=== PATIENT | female | born 1935 | race Caucasian/White ===

== ENCOUNTER 2022-04-27 09:20 | Observation (INO) | payer MEDICARE, BC, SELFPAY ==
[2022-04-27] VITALS (107 sets, daily range): BP systolic 99–148; BP diastolic 65–113; PULSE 69–98; RESP 16–20; TEMP 36.4–36.9; O2SAT 67–100; BMI 29.0; BMI 25.9
--- NOTE | 2022-04-27 09:21 | CRLHL7_ITS ---
For Patients: As a result of the Century Cures Act, medical imaging exams and procedure reports are released immediately into your electronic medical record. You may view this report before your referring provider. If you have questions, please contact your health care provider. INDICATION: Clinical signs and symptoms of an acute stroke. COMPARISON: A prior examination dated April 02, 2022 TECHNIQUE: CT examination of the head was performed as axial sections without intravenous contrast. Images were obtained from the vertex of the skull through the skull base. Please note that all CT scans at this facility use dose modulation, iterative reconstruction, and/or weight-based dosing when appropriate to reduce radiation dose to as low as reasonably achievable. FINDINGS: The brain shows no sign of mass lesion, mass effect, hemorrhage, or edema. There are involutional changes. There is moderate cortical atrophy and there is moderate to severe white matter disease. 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 There is subcortical infarct in the anterior aspect of the left centrum semiovale. This nonacute There is no hydrocephalus. The visualized portions of the orbits are normal in appearance. The osseous structures are normal in appearance with no sign of abnormality in the skull base or calvarium. There is a hyperdense focus identified on the left. It is probably vascular and probably within branches M2 her and 3 on the left in the region of the insula. This was not present on April 02, 2022 and could represent thrombus within this vessel. A CT is advised. I discussed this case with Dr. Jenni Garcia at 9:55 a.m. on April 27, 2022 IMPRESSION: 1. Hyperdense focus identified in the left MCA distribution in the region of the anterior left insula. This was not present on the prior study and probably represents thrombus within peripheral branches of the MCA in this area. 2. No hemorrhage, mass or definite edema on the current study. 3. Atrophy and white matter disease. 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 Please note that all CT scans at this facility use dose modulation, iterative reconstruction, and/or weight-based dosing when appropriate to reduce radiation dose to as low as reasonably achievable. Dictated by Otoniel Shafer MD @ 04/27/2022 9:57:59 AM (Electronically Signed)
--- NOTE | 2022-04-27 10:05 | CRLHL7_ITS ---
For Patients: As a result of the Century Cures Act, medical imaging exams and procedure reports are released immediately into your electronic medical record. You may view this report before your referring provider. If you have questions, please contact your health care provider. CT ANGIOGRAM NECK DATE: 04/27/2022 CLINICAL HISTORY: Patient with focal neurological deficits. TECHNIQUE: Standard helical CT image acquisition of the neck up to the skull base after bolus intravenous contrast enhancement. Multiplanar reconstructed images performed on a separate workstation. COMPARISON: CT same day. FINDINGS: The origins of the great vessels from the aortic arch are patent. The origin of the right vertebral artery is patent. The origin of the left vertebral artery is patent. The common carotid arteries are patent. There is no stenosis at the origin of the right internal carotid artery. There is no stenosis at the origin of the left internal carotid artery. The rest of the cervical segments of the internal carotid arteries are patent up to the skull base. The left vertebral artery is dominant. The cervical segments of the vertebral arteries are patent up to the skull base. The visualized lung apices are unremarkable. The thyroid gland demonstrates a 1.8cm hypodense lesion in its left lobe. The soft tissues of the neck are unremarkable. There are degenerative changes in the cervical spine. IMPRESSION: 1. Patent cervical vasculature. 2. 1.8cm left thyroid nodule. This could be better assessed with ultrasound. Please note that all CT scans at this facility use dose modulation, iterative reconstruction, and/or weight-based dosing when appropriate to reduce radiation dose to as low as reasonably achievable. Dictated by: Pedro Luis Jara MD @ 04/27/2022 10:57:45 (Electronically Signed)
--- NOTE | 2022-04-27 10:05 | CRLHL7_ITS ---
For Patients: As a result of the Cures Act, medical imaging exams and procedure reports are released immediately into your electronic medical record. You may view this report before your referring provider. If you have questions, please contact your health care provider. CT ANGIOGRAM HEAD DATE: 04/27/2022 CLINICAL HISTORY: Patient with focal neurological deficits. TECHNIQUE: Standard helical CT image acquisition through the intracranial circulation following intravenous administration of contrast material with bolus tracking. Multiplanar reconstructed images were performed and interpreted. COMPARISON: CT same day. FINDINGS: There is no cerebral aneurysm or large vessel occlusion. The right internal carotid artery is normal. The right middle cerebral artery and its branches are normal. The right anterior cerebral artery and its branches are normal. The left internal carotid artery is normal. The left middle cerebral artery and its branches are normal. The left anterior cerebral artery and its branches are normal. The anterior communicating artery is well visualized and appears normal. The right vertebral artery and PICA are normal. The left vertebral artery and PICA are normal. The left vertebral artery is dominant. The basilar artery is patent and appears normal. The right posterior cerebral artery is normal. The left posterior cerebral artery is normal. The visualized venous structures are patent. IMPRESSION: Normal CT angiogram of the head without intracranial aneurysm or other neurovascular abnormality. Please note that all CT scans at this facility use dose modulation, iterative reconstruction, and/or weight-based dosing when appropriate to reduce radiation dose to as low as reasonably achievable. Dictated by: Pedro Luis Jara MD @ 04/27/2022 10:59:38 (Electronically Signed)
[2022-04-27 10:06] LABS: Creatinine, Point-of-Care* 0.8 mg/dl (0.6-1.3)
[2022-04-27 10:22] LABS: Basophils Percent Auto 0.5 % (0.0-3.0); Hematocrit 38.2 % (33.0-51.0); Hemoglobin* 12.4 gm/dL (12.0-16.0); Immature Granulocytes Pct Auto 0.2 %; Lymphocytes Percent Auto 15.6 % (20-44); Mean Corpuscular HGB Conc 33 gm/dL (32-36); Mean Corpuscular Hemoglobin 34 pg (26-34); Mean Corpuscular Volume 104 fL (80-100); Monocytes Percent Auto 6.5 % (0.0-11.0); Neutrophils Percent Auto 75.2 % (42.0-72.0); Platelet Count* 188 K/uL (140-440); RDW Coefficient of Variation % 13.5 % (11.5-15.5); Red Blood Count 3.67 m/uL (4.00-5.20); White Blood Count* 4.03 K/uL (4.50-11.00)
[2022-04-27] MEDS: 0.9 % SODIUM CHLORIDE 1000 ml 1,000 ML IV ×2 (10:27→15:46)
[2022-04-27] MEDS: ASPIRIN 81 MG TAB.CHEW 162 MG PO (10:27)
[2022-04-27 10:33] LABS: Slide Review Reflex No
[2022-04-27 10:41] LABS: Chloride* 106 mmol/L (96-114); Sodium* 140 mmol/L (135-149)
[2022-04-27 10:42] LABS: Prothrombin Time 15.9 Seconds
[2022-04-27 10:43] LABS: Partial Thromboplastin Time* 34 Seconds (23-33)
[2022-04-27 10:44] LABS: Blood Urea Nitrogen* 20 mg/dL (7-30); Carbon Dioxide* 28 mmol/L (20-32); Creatinine* 0.7 mg/dL (0.5-1.5); Estimated Glomerular Filt Rate 85 ml/min
[2022-04-27 10:45] LABS: D Dimer Quantitative* 0.31 ug/ml (0.00-0.50)
[2022-04-27 10:45] LABS: Calcium* 8.7 mg/dL (8.4-10.6); Glucose* 96 mg/dL (60-115)
[2022-04-27 10:55] LABS: NT Pro B Type NatriureticPept* 1420 pg/mL
[2022-04-27 11:01] LABS: PCR FLU A Negative PCR FLU A (Negative); PCR FLU B Negative PCR FLU B (Negative); PCR RSV Negative PCR RSV (Negative)
[2022-04-27 11:19] LABS: SARS PCR* Negative SARS-CoV-2 (Negative)
[2022-04-27] MEDS: ASPIRIN 81 MG TAB.CHEW PO ×2 (12:33→15:46)
--- NOTE | 2022-04-27 14:30 | ED.NURSE ---
Patient's original symptoms of stroke had resolved. Around 1430, Patient started having a hard time finding words again and was slanted towards the right. was notified. New CT order placed. Hold off on giving PO eliquis and ASA.
--- NOTE | 2022-04-27 14:41 | CRLHL7_ITS ---
For Patients: As a result of the Cures Act, medical imaging exams and procedure reports are released immediately into your electronic medical record. You may view this report before your referring provider. If you have questions, please contact your health care provider. INDICATION: Aphasia, recent TIA. TECHNIQUE: CT head without contrast. COMPARISON: April 27, 2022. FINDINGS: CSF spaces: Mild diffuse atrophy, expected for age. Brain parenchyma and extra-axial spaces: Chronic white matter ischemic disease. Chronic anterior left centrum semiovale infarction. The payne-white differentiation is normal. Similar hyperdense focus adjacent to the left insula. No sign of mass, hemorrhage, or midline shift. No extra-axial fluid collection. Skull base and calvarium: The visualized paranasal sinuses and mastoid air cells demonstrate no acute or significant findings. Bilateral lens replacement. The visualized orbits are grossly unremarkable. No skull fractures. IMPRESSION: No acute intracranial abnormality or significant change when compared to prior study. However, if there is persistent clinical concern for acute infarction, MRI is a more sensitive study. Please note that all CT scans at this facility use dose modulation, iterative reconstruction, and/or weight-based dosing when appropriate to reduce radiation dose to as low as reasonably achievable. Dictated by Santhosh Ordonez MD @ 04/27/2022 4:17:29 PM (Electronically Signed)
--- NOTE | 2022-04-27 15:43 | ED.NEUROSD ---
HPI - Neuro Symptoms/Deficit General Date Seen: 04/27/22 Chief Complaint: Neuro Symptoms/Altered Deficit Stated Complaint: Stroke Time Seen by Provider: 04/27/22 09:21 Source: patient and family Mode of arrival: EMS Limitations: no limitations History of Present Illness HPI Narrative: Patient is a 87-year-old female who presents here for evaluation [facility], with aphasia, and right arm weakness, she was last known well at 8:00 a.m. 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 She is really unable to talk, or get the words out, my initial evaluation in the hallway, before she went to head CT showed that she had a little bit of weakness of her right arm. Her daughter is here with her, she has vehemently DNR DNI. Related Data Home Medications Medication Instructions Recorded Confirmed apixaban 5 mg tablet (Eliquis) 5 mg PO BID 04/27/22 04/27/22 aspirin 81 mg chewable tablet (St 81 mg PO DAILY 04/27/22 04/27/22 Santhosh Aspirin) azathioprine 50 mg tablet 100 mg PO DAILY 04/27/22 04/27/22 cholecalciferol (vitamin D3) 50 50 mcg PO DAILY 04/27/22 04/27/22 mcg (2,000 unit) capsule metoprolol succinate 25 mg 25 mg PO DAILY 04/27/22 04/27/22 tablet,extended release 24 hr omega 2-kgt-bvb-fish oil 1,000 mg 1 cap PO DAILY 04/27/22 04/27/22 (120 mg-180 mg) capsule (Fish Oil) prednisone 1 mg tablet 2 mg PO DAILY 04/27/22 04/27/22 rosuvastatin 20 mg tablet (Crestor) 20 mg PO HS 04/27/22 04/27/22 venlafaxine 37.5 mg tablet 37.5 mg PO DAILY 04/27/22 04/27/22 vitamins A,C,B-dmry-kckvem 14,320 1 cap PO BID 04/27/22 04/27/22 unit-226 mg-200 unit capsule (PreserVision AREDS) Allergies Allergy/AdvReac Type Severity Reaction Status Date / Time amitriptyline [From Elavil] Allergy Unknown Verified 04/27/22 09:47 nitrofurantoin Allergy Unknown Uncoded 04/27/22 09:47 Review of Systems Status of ROS: Reports: 10 or more systems reviewed and unremarkable except as noted in History and below PFSH [facility] Social History Smoking Status: Unknown if ever smoked Do you use any of these nicotine containing products: None Second hand tobacco smoke exposure: No How often do you have a drink containing alcohol: never AUDIT-C Alcohol total score: 0 Non-prescribed substance use: denies use service: No Exam Narrative: Exam Narrative: Patient is now seen and stabilization room 1, she has no talking to me, she has a little bit of trouble getting some of her words out but her daughter tells me that is her baseline after her stroke, no significant weakness of the face, cranial nerves are normal, TMs are normal, 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 Const: Vital Signs, click to edit/add: Vital Signs - 24 hr 04/27/22 09:20 04/27/22 09:30 04/27/22 09:45 Temperature 97.5 F L Pulse Rate Pulse Rate [Pulse Oximeter] 81 81 81 Respiratory Rate 16 16 16 Blood Pressure Blood Pressure [Le ft Upper Arm] 137/97 H 131/96 H 134/93 H Pulse Oximetry 95 98 98 Oxygen Delivery Me thod Room Air Room Air Room Air 04/27/22 10:00 04/27/22 10:15 04/27/22 09:56 Temperature Pulse Rate 73 Pulse Rate [Pulse Oximeter] 80 82 Respiratory Rate 16 16 Blood Pressure Blood Pressure [Le ft Upper Arm] 128/81 136/85 Pulse Oximetry 93 97 95 Oxygen Delivery Me thod Room Air Room Air 04/27/22 09:57 04/27/22 10:00 04/27/22 10:03 Temperature Pulse Rate 87 82 76 Pulse Rate [Pulse Oximeter] Respiratory Rate Blood Pressure 131/96 H 134/93 H Blood Pressure [Le ft Upper Arm] Pulse Oximetry 98 98 97 Oxygen Delivery Me thod 04/27/22 10:05 04/27/22 10:06 04/27/22 10:10 Temperature Pulse Rate 81 79 90 Pulse Rate [Pulse Oximeter] Respiratory Rate Blood Pressure 128/81 Blood Pressure [Le ft Upper Arm] Pulse Oximetry 96 97 94 Oxygen Delivery Me thod 04/27/22 10:12 04/27/22 10:15 04/27/22 10:27 Temperature Pulse Rate 81 77 88 Pulse Rate [Pulse Oximeter] Respiratory Rate Blood Pressure 136/85 Blood Pressure [Le ft Upper Arm] Pulse Oximetry 97 98 88 Oxygen Delivery Me thod 04/27/22 10:28 04/27/22 10:30 04/27/22 10:32 Temperature Pulse Rate 88 89 86 Pulse Rate [Pulse Oximeter] Respiratory Rate Blood Pressure 125/86 136/94 H Blood Pressure [Le ft Upper Arm] Pulse Oximetry 98 93 99 Oxygen Delivery Me thod 04/27/22 10:35 04/27/22 10:40 04/27/22 10:42 Temperature Pulse Rate 98 79 84 Pulse Rate [Pulse Oximeter] Respiratory Rate 16 Blood Pressure 123/91 H Blood Pressure [Le ft Upper Arm] Pulse Oximetry 93 98 85 L Oxygen Delivery Me thod 04/27/22 10:45 04/27/22 10:50 04/27/22 10:52 Temperature Pulse Rate 82 76 80 Pulse Rate [Pulse Oximeter] Respiratory Rate Blood Pressure 133/88 Blood Pressure [Le ft Upper Arm] Pulse Oximetry 98 91 99 Oxygen Delivery Me thod 04/27/22 10:55 04/27/22 11:00 04/27/22 11:02 Temperature Pulse Rate 70 70 78 Pulse Rate [Pulse Oximeter] Respiratory Rate Blood Pressure 135/87 Blood Pressure [Le ft Upper Arm] Pulse Oximetry 97 97 97 Oxygen Delivery Me thod 04/27/22 11:05 04/27/22 11:10 04/27/22 11:12 Temperature Pulse Rate 84 95 90 Pulse Rate [Pulse Oximeter] Respiratory Rate Blood Pressure 135/84 Blood Pressure [Le ft Upper Arm] Pulse Oximetry 98 88 99 Oxygen Delivery Me thod 04/27/22 11:15 04/27/22 11:20 04/27/22 11:22 Temperature Pulse Rate 98 83 79 Pulse Rate [Pulse Oximeter] Respiratory Rate Blood Pressure 143/88 H Blood Pressure [Le ft Upper Arm] Pulse Oximetry 82 L 99 95 Oxygen Delivery Me thod 04/27/22 11:25 04/27/22 11:30 04/27/22 11:31 Temperature Pulse Rate 82 84 80 Pulse Rate [Pulse Oximeter] Respiratory Rate Blood Pressure 142/103 H Blood Pressure [Le ft Upper Arm] Pulse Oximetry 98 99 91 Oxygen Delivery Me thod 04/27/22 11:35 04/27/22 11:40 04/27/22 11:42 Temperature Pulse Rate 83 71 75 Pulse Rate [Pulse Oximeter] Respiratory Rate Blood Pressure 129/86 Blood Pressure [Le ft Upper Arm] Pulse Oximetry 96 100 96 Oxygen Delivery Me thod 04/27/22 11:47 04/27/22 11:50 04/27/22 11:57 Temperature Pulse Rate 85 74 86 Pulse Rate [Pulse Oximeter] Respiratory Rate Blood Pressure Blood Pressure [Le ft Upper Arm] Pulse Oximetry 93 97 100 Oxygen Delivery Me thod 04/27/22 12:00 04/27/22 12:02 04/27/22 12:07 Temperature Pulse Rate 80 70 81 Pulse Rate [Pulse Oximeter] Respiratory Rate Blood Pressure 144/97 H Blood Pressure [Le ft Upper Arm] Pulse Oximetry 88 93 99 Oxygen Delivery Me thod 04/27/22 12:10 04/27/22 12:12 04/27/22 12:17 Temperature Pulse Rate 82 72 77 Pulse Rate [Pulse Oximeter] Respiratory Rate Blood Pressure 137/85 Blood Pressure [Le ft Upper Arm] Pulse Oximetry 90 92 96 Oxygen Delivery Me thod 04/27/22 12:20 04/27/22 12:23 04/27/22 12:25 Temperature Pulse Rate 71 69 84 Pulse Rate [Pulse Oximeter] Respiratory Rate Blood Pressure 127/86 Blood Pressure [Le ft Upper Arm] Pulse Oximetry 96 97 99 Oxygen Delivery Me thod 04/27/22 12:32 04/27/22 12:42 04/27/22 12:52 Temperature Pulse Rate Pulse Rate [Pulse Oximeter] Respiratory Rate Blood Pressure 125/93 H 140/113 H 134/86 Blood Pressure [Le ft Upper Arm] Pulse Oximetry Oxygen Delivery Me thod 04/27/22 13:02 04/27/22 13:08 04/27/22 13:10 Temperature Pulse Rate 83 81 Pulse Rate [Pulse Oximeter] Respiratory Rate Blood Pressure 121/78 Blood Pressure [Le ft Upper Arm] Pulse Oximetry 67 L 98 Oxygen Delivery Me thod 04/27/22 13:12 04/27/22 13:15 04/27/22 13:20 Temperature 98.4 F Pulse Rate 73 76 78 Pulse Rate [Pulse Oximeter] Respiratory Rate 16 36 H Blood Pressure 102/71 Blood Pressure [Le ft Upper Arm] Pulse Oximetry 99 97 98 Oxygen Delivery Me thod 04/27/22 13:21 04/27/22 13:25 04/27/22 13:30 Temperature Pulse Rate 75 90 87 Pulse Rate [Pulse Oximeter] Respiratory Rate Blood Pressure 99/70 Blood Pressure [Le ft Upper Arm] Pulse Oximetry 98 97 99 Oxygen Delivery Me thod 04/27/22 13:31 04/27/22 13:35 04/27/22 13:40 Temperature Pulse Rate 80 80 71 Pulse Rate [Pulse Oximeter] Respiratory Rate Blood Pressure 112/75 Blood Pressure [Le ft Upper Arm] Pulse Oximetry 99 99 98 Oxygen Delivery Me thod 04/27/22 13:42 04/27/22 13:45 04/27/22 13:50 Temperature Pulse Rate 77 72 87 Pulse Rate [Pulse Oximeter] Respiratory Rate Blood Pressure 100/67 Blood Pressure [Le ft Upper Arm] Pulse Oximetry 98 96 97 Oxygen Delivery Me thod 04/27/22 13:51 04/27/22 13:55 04/27/22 14:00 Temperature Pulse Rate 73 70 80 Pulse Rate [Pulse Oximeter] Respiratory Rate Blood Pressure 102/65 Blood Pressure [Le ft Upper Arm] Pulse Oximetry 97 97 97 Oxygen Delivery Me thod 04/27/22 14:01 04/27/22 14:02 04/27/22 14:05 Temperature Pulse Rate 87 73 76 Pulse Rate [Pulse Oximeter] Respiratory Rate Blood Pressure 100/66 Blood Pressure [Le ft Upper Arm] Pulse Oximetry 96 97 96 Oxygen Delivery Me thod 04/27/22 14:10 04/27/22 14:11 04/27/22 14:15 Temperature Pulse Rate 69 76 87 Pulse Rate [Pulse Oximeter] Respiratory Rate Blood Pressure 109/70 Blood Pressure [Le ft Upper Arm] Pulse Oximetry 96 94 95 Oxygen Delivery Me thod 04/27/22 14:25 04/27/22 14:30 04/27/22 14:31 Temperature 98.4 F Pulse Rate 92 88 81 Pulse Rate [Pulse Oximeter] Respiratory Rate Blood Pressure 129/87 Blood Pressure [Le ft Upper Arm] Pulse Oximetry 93 96 96 Oxygen Delivery Me thod 04/27/22 14:35 04/27/22 14:40 04/27/22 14:42 Temperature Pulse Rate 84 78 85 Pulse Rate [Pulse Oximeter] Respiratory Rate Blood Pressure 113/85 Blood Pressure [Le ft Upper Arm] Pulse Oximetry 98 98 99 Oxygen Delivery Me thod 04/27/22 14:45 04/27/22 15:04 04/27/22 15:05 Temperature Pulse Rate 82 86 83 Pulse Rate [Pulse Oximeter] Respiratory Rate Blood Pressure 123/96 H Blood Pressure [Le ft Upper Arm] Pulse Oximetry 94 98 98 Oxygen Delivery Me thod 04/27/22 15:10 04/27/22 15:11 04/27/22 15:14 Temperature Pulse Rate 84 82 84 Pulse Rate [Pulse Oximeter] Respiratory Rate Blood Pressure 114/73 114/74 Blood Pressure [Le ft Upper Arm] Pulse Oximetry 97 97 97 Oxygen Delivery Me thod 04/27/22 15:15 04/27/22 15:20 04/27/22 15:21 Temperature Pulse Rate 82 84 88 Pulse Rate [Pulse Oximeter] Respiratory Rate Blood Pressure 130/89 Blood Pressure [Le ft Upper Arm] Pulse Oximetry 97 97 95 Oxygen Delivery Me thod Course Course Hospital Course: She is seen and assessed she is improved we will give her some fluids, I did speak to Dr. Ibarra from Neurology at [facility], he suggested a full aspirin 325 mg, continue with the Eliquis, not an MRI at the present time, after we discussed she had a CTA of her head neck also. Reevaluation(s) Reevaluation #1: Patient had another episode of aphasia, head CT was done which shows no acute findings by my review, she had not had her Eliquis today, and so we gave her Eliquis in her other medications along with stress dose steroids, I spoke to the inpatient physician about admission earlier, and communicated the above findings, she is back to baseline we also give her L of fluids. Time: 15:47 Vital Signs Vital signs: Initial Vital Signs Temperature 97.5 F L 04/27/22 09:20 Temperature Source Temporal Artery Scan 04/27/22 09:20 Pulse Rate 81 04/27/22 09:20 Pulse Rhythm 04/27/22 09:20 Pulse Strength 3+ Normal 04/27/22 09:20 Respiratory Rate 16 04/27/22 09:20 Blood Pressure 137/97 H 04/27/22 09:20 Blood Pressure Mean 110 04/27/22 09:20 Blood Pressure Position Supine 04/27/22 09:20 Pulse Oximetry 95 04/27/22 09:20 Oxygen Delivery Method 04/27/22 09:20 Vital Signs Temperature 97.5 F L 04/27/22 09:20 Pulse Rate 81 04/27/22 09:20 Respiratory Rate 16 04/27/22 09:20 Blood Pressure 137/97 H 04/27/22 09:20 Pulse Oximetry 95 04/27/22 09:20 Oxygen Delivery Method 04/27/22 09:20 Temperature 98.4 F 04/27/22 14:31 Pulse Rate 88 04/27/22 15:21 Respiratory Rate 36 H 04/27/22 13:20 Blood Pressure 130/89 04/27/22 15:21 Pulse Oximetry 95 04/27/22 15:21 Oxygen Delivery Method 04/27/22 10:15 MDM - Neuro Symptoms/Deficit MDM Narrative Medical decision making narrative: Life-threatening differential diagnosis considered include stroke, coronary artery disease, pneumonia, and heart failure. Other differential diagnosis include but are not limited to electrolyte imbalances, anemia, medication reactions, and urinary tract infection Medical Records Attestation: I reviewed the patient's medical records. Lab Data Attestation: I reviewed the patient's lab results. Labs: Lab Results 04/27/22 04/27/22 04/27/22 Range/Units 09:33 09:33 10:03 WBC 4.03 L (4.50-11.00) K/uL RBC 3.67 L (4.00-5.20) m/uL Hgb 12.4 (12.0-16.0) gm/dL Hct 38.2 (33.0-51.0) % MCV 104 H (80-100) fL MCH 34 (26-34) pg MCHC 33 (32-36) gm/dL RDW Coeff of Pamela 13.5 (11.5-15.5) % Plt Count 188 (140-440) K/uL Neut % (Auto) 75.2 H (42.0-72.0) % Lymph % (Auto) 15.6 L (20-44) % Crenshaw % (Auto) 6.5 (0.0-11.0) % Eos % (Auto) 2.0 (0.0-7.0) % Baso % (Auto) 0.5 (0.0-3.0) % Neut # (Auto) 3.00 (1.7-7.0) K/uL Lymph # (Auto) 0.60 L (0.90-2.90) K/uL Crenshaw # (Auto) 0.30 (0.00-0.90) K/UL Eos # (Auto) 0.10 (0.00-0.50) K/uL Baso # (Auto) 0.00 (0.00-0.30) K/uL INR 1.20 H (0.91-1.10) APTT 34 H (23-33) Seconds D-Dimer Quant (PE/DVT) 0.31 (0.00-0.50) ug/ml Sodium (135-149) mmol/L Potassium (3.6-5.1) mmol/L Chloride (96-114) mmol/L Carbon Dioxide (20-32) mmol/L BUN (7-30) mg/dL Creatinine (0.5-1.5) mg/dL Estimated Creat Clear Estimated GFR ml/min Glucose (60-115) mg/dL Calcium (8.4-10.6) mg/dL NT-Pro-B Natriuret Pep pg/mL SARS-CoV-2 (PCR) (Negative) Influenza Type A (PCR) (Negative) Influenza Type B (PCR) (Negative) RSV (PCR) (Negative) POC Creatinine 0.8 (0.6-1.3) mg/dl 04/27/22 04/27/22 Range/Units 10:10 10:16 WBC (4.50-11.00) K/uL RBC (4.00-5.20) m/uL Hgb (12.0-16.0) gm/dL Hct (33.0-51.0) % MCV (80-100) fL MCH (26-34) pg MCHC (32-36) gm/dL RDW Coeff of Pamela (11.5-15.5) % Plt Count (140-440) K/uL Neut % (Auto) (42.0-72.0) % Lymph % (Auto) (20-44) % Crenshaw % (Auto) (0.0-11.0) % Eos % (Auto) (0.0-7.0) % Baso % (Auto) (0.0-3.0) % Neut # (Auto) (1.7-7.0) K/uL Lymph # (Auto) (0.90-2.90) K/uL Crenshaw # (Auto) (0.00-0.90) K/UL Eos # (Auto) (0.00-0.50) K/uL Baso # (Auto) (0.00-0.30) K/uL INR (0.91-1.10) APTT (23-33) Seconds D-Dimer Quant (PE/DVT) (0.00-0.50) ug/ml Sodium 140 (135-149) mmol/L Potassium 4.0 (3.6-5.1) mmol/L Chloride 106 (96-114) mmol/L Carbon Dioxide 28 (20-32) mmol/L BUN 20 (7-30) mg/dL Creatinine 0.7 (0.5-1.5) mg/dL Estimated Creat Clear 40.00 Estimated GFR 85 ml/min Glucose 96 (60-115) mg/dL Calcium 8.7 (8.4-10.6) mg/dL NT-Pro-B Natriuret Pep 1420 pg/mL SARS-CoV-2 (PCR) Negative SARS-CoV-2 (Negative) Influenza Type A (PCR) Negative PCR FLU A (Negative) Influenza Type B (PCR) Negative PCR FLU B (Negative) RSV (PCR) Negative PCR RSV (Negative) POC Creatinine (0.6-1.3) mg/dl ECG Data Attestation: I personally reviewed and interpreted this ECG as follows: ECG interpretation date: 04/27/22 Prior ECG tracings: not available for review Interpretation: Sinus rhythm with sinus arrhythmia infrequent PVCs, incomplete right bundle-branch block, nonspecific ST wave changes Discharge Plan Discharge Clinical Impression: Cerebrovascular accident Patient Disposition: Admitted As Inpatient Condition: Improved
[2022-04-27] MEDS: APIXABAN 5 MG TABLET PO ×2 (15:46→20:22)
[2022-04-27] MEDS: predniSONE 10 MG TABLET PO (15:46)
--- NOTE | 2022-04-27 16:15 | ED.NURSE ---
Patient was transferred to M/S room 261. Report was given to ÓSCAR Shaffer. All belongings sent with patient. Daughter was accompanying patient.
--- NOTE | 2022-04-27 17:03 | PM.IMHP1 ---
Hospitalist- H&P: HPI History of Present Illness Date Seen: 04/27/22 Chief complaint: Stroke Narrative: Namita Ramos is a 87 year old female who presented to the emergency room this morning from [facility] for aphasia and right arm weakness. Daughter Julia present for H&P. Last known well was 8am this morning. Patient performed her morning ADLs and at approximately 8:30 a.m. she was found to have acute aphasia and right upper extremity weakness. Symptoms noted by Julia, who was actually picking Namita up to take her home from [facility] (was there for a TCU stay, following an admission at [facility] from 04/03-04/09 for an acute/subacute cardioembolic stroke. Symptoms at that time included right leg weakness and dysarthria). ER course and findings: - no acute findings on head CT, reassuring head and neck CTA. Not a candidate for thrombolysis given Eliquis therapy - Dr. Garcia in the ED discussed the case with Dr. Ibarra of Stroke Neurology who recommended continuing patient's Eliquis and increasing her ASA from 81-325 mg daily. Urgent repeat MRI not indicated per Neuro - patient's aphasia improved; then returned. Patient then had a 2nd head CT without contrast that did not exhibit acute changes Upon arrival to the floor, patient denies chest pain, dyspnea, or headache. She continues to have word-finding difficulties, but is mentating appropriately. Patient's MRI from recent [facility] stay exhibited numerous punctate/small acute to subacute infarcts within the supratentorial/infratentorial brain, consistent with small thromboemboli. Namita was followed by Neurology and Cardiology. She had a CTCA performed that exhibited a highly mobile mass in the LV chamber with resultant thrombus, also noted on echocardiogram. She then had a cardiac MRI on 04/06 that did not exhibit an LV thrombus. During stay, patient was initially treated via heparin drip, transitioned to po Eliquis upon discharge, in addition to 81 mg aspirin per day and rosuvastatin. The rest of her past medical and surgical history updated below. 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 She has 3 adult children, daughter Julia would be medical decision maker if needed. She requests DNR/DNI status, but is amenable to transfer to a tertiary care facility if recommended. Review of Systems Status of ROS: Reports: 10 or more systems reviewed and unremarkable except as noted in History and below Narrative: Specifically denies CP, dyspnea, or headache. Denies vision concerns. [facility] Medical History (Updated 04/27/22 @ 19:35 by Kajal Rosario MD) Chronic anticoagulation Dermatomyositis Essential hypertension Hyperlipidemia LV (left ventricular) mural thrombus Steroid dependent Social History Highest level of school completed/degree received: Associate degree: occupational, technical, vocational program Smoking Status: Unknown if ever smoked Do you use any of these nicotine containing products: None Second hand tobacco smoke exposure: No How often do you have a drink containing alcohol: monthly or less Alcohol type: wine AUDIT-C Alcohol total score: 1 Non-prescribed substance use: denies use service: No Meds Home Medications and Allergies Home Medications Medication Instructions Recorded Confirmed Type apixaban 5 mg tablet (Eliquis) 5 mg PO BID 04/27/22 04/27/22 History aspirin 81 mg chewable tablet (St 81 mg PO DAILY 04/27/22 04/27/22 History Santhosh Aspirin) azathioprine 50 mg tablet 100 mg PO DAILY 04/27/22 04/27/22 History cholecalciferol (vitamin D3) 50 50 mcg PO DAILY 04/27/22 04/27/22 History mcg (2,000 unit) capsule metoprolol succinate 25 mg 25 mg PO DAILY 04/27/22 04/27/22 History tablet,extended release 24 hr omega 3-rua-dmu-fish oil 1,000 mg 1 cap PO DAILY 04/27/22 04/27/22 History (120 mg-180 mg) capsule (Fish Oil) prednisone 1 mg tablet 2 mg PO DAILY 04/27/22 04/27/22 History rosuvastatin 20 mg tablet (Crestor) 20 mg PO HS 04/27/22 04/27/22 History venlafaxine 37.5 mg tablet 37.5 mg PO DAILY 04/27/22 04/27/22 History vitamins A,C,O-vuaz-gpsxiy 14,320 1 cap PO BID 04/27/22 04/27/22 History unit-226 mg-200 unit capsule (PreserVision AREDS) Allergies Allergy/AdvReac Type Severity Reaction Status Date / Time amitriptyline [From Elavil] Allergy Unknown Verified 04/27/22 09:47 nitrofurantoin Allergy Unknown Uncoded 04/27/22 09:47 Exam Narrative: Exam Narrative: GEN: Alert and laying comfortably in bed, nontoxic in appearance. Word-finding difficulty is evident HEENT: Normal external ears, left strabismus (baseline and chronic, per daughter), no facial droop, tongue protrudes midline CV: RRR, No concerning murmurs, rubs, or gallops R: LCTA bilaterally without concerning wheezing, rales, or rhonchi, air movement adequate Ext: wwp, no concerning edema Skin: Scattered bruising on upper extremities, no other concerning skin lesions or findings noted Neuro: Mildly decreased gl accountant strength on right, word-finding difficulties as noted above, no other focal neurological deficits Psych: Appropriate, intermittently frustrated regarding speech Const: Vital Signs, click to edit/add: Vital Signs - 24 hr 04/27/22 09:20 04/27/22 09:30 04/27/22 09:45 Temperature 97.5 F L Pulse Rate Pulse Rate [Pulse Oximeter] 81 81 81 Respiratory Rate 16 16 16 Blood Pressure Blood Pressure [Le ft Upper Arm] 137/97 H 131/96 H 134/93 H Blood Pressure [Ri ght Arm] Pulse Oximetry 95 98 98 Oxygen Delivery Me thod Room Air Room Air Room Air 04/27/22 10:00 04/27/22 10:15 04/27/22 09:56 Temperature Pulse Rate 73 Pulse Rate [Pulse Oximeter] 80 82 Respiratory Rate 16 16 Blood Pressure Blood Pressure [Le ft Upper Arm] 128/81 136/85 Blood Pressure [Ri ght Arm] Pulse Oximetry 93 97 95 Oxygen Delivery Me thod Room Air Room Air 04/27/22 09:57 04/27/22 10:00 04/27/22 10:03 Temperature Pulse Rate 87 82 76 Pulse Rate [Pulse Oximeter] Respiratory Rate Blood Pressure 131/96 H 134/93 H Blood Pressure [Le ft Upper Arm] Blood Pressure [Ri ght Arm] Pulse Oximetry 98 98 97 Oxygen Delivery Me thod 04/27/22 10:05 04/27/22 10:06 04/27/22 10:10 Temperature Pulse Rate 81 79 90 Pulse Rate [Pulse Oximeter] Respiratory Rate Blood Pressure 128/81 Blood Pressure [Le ft Upper Arm] Blood Pressure [Ri ght Arm] Pulse Oximetry 96 97 94 Oxygen Delivery Me thod 04/27/22 10:12 04/27/22 10:15 04/27/22 10:27 Temperature Pulse Rate 81 77 88 Pulse Rate [Pulse Oximeter] Respiratory Rate Blood Pressure 136/85 Blood Pressure [Le ft Upper Arm] Blood Pressure [Ri ght Arm] Pulse Oximetry 97 98 88 Oxygen Delivery Me thod 04/27/22 10:28 04/27/22 10:30 04/27/22 10:32 Temperature Pulse Rate 88 89 86 Pulse Rate [Pulse Oximeter] Respiratory Rate Blood Pressure 125/86 136/94 H Blood Pressure [Le ft Upper Arm] Blood Pressure [Ri ght Arm] Pulse Oximetry 98 93 99 Oxygen Delivery Me thod 04/27/22 10:35 04/27/22 10:40 04/27/22 10:42 Temperature Pulse Rate 98 79 84 Pulse Rate [Pulse Oximeter] Respiratory Rate 16 Blood Pressure 123/91 H Blood Pressure [Le ft Upper Arm] Blood Pressure [Ri ght Arm] Pulse Oximetry 93 98 85 L Oxygen Delivery Me thod 04/27/22 10:45 04/27/22 10:50 04/27/22 10:52 Temperature Pulse Rate 82 76 80 Pulse Rate [Pulse Oximeter] Respiratory Rate Blood Pressure 133/88 Blood Pressure [Le ft Upper Arm] Blood Pressure [Ri ght Arm] Pulse Oximetry 98 91 99 Oxygen Delivery Me thod 04/27/22 10:55 04/27/22 11:00 04/27/22 11:02 Temperature Pulse Rate 70 70 78 Pulse Rate [Pulse Oximeter] Respiratory Rate Blood Pressure 135/87 Blood Pressure [Le ft Upper Arm] Blood Pressure [Ri ght Arm] Pulse Oximetry 97 97 97 Oxygen Delivery Me thod 04/27/22 11:05 04/27/22 11:10 04/27/22 11:12 Temperature Pulse Rate 84 95 90 Pulse Rate [Pulse Oximeter] Respiratory Rate Blood Pressure 135/84 Blood Pressure [Le ft Upper Arm] Blood Pressure [Ri ght Arm] Pulse Oximetry 98 88 99 Oxygen Delivery Me thod 04/27/22 11:15 04/27/22 11:20 04/27/22 11:22 Temperature Pulse Rate 98 83 79 Pulse Rate [Pulse Oximeter] Respiratory Rate Blood Pressure 143/88 H Blood Pressure [Le ft Upper Arm] Blood Pressure [Ri ght Arm] Pulse Oximetry 82 L 99 95 Oxygen Delivery Me thod 04/27/22 11:25 04/27/22 11:30 04/27/22 11:31 Temperature Pulse Rate 82 84 80 Pulse Rate [Pulse Oximeter] Respiratory Rate Blood Pressure 142/103 H Blood Pressure [Le ft Upper Arm] Blood Pressure [Ri ght Arm] Pulse Oximetry 98 99 91 Oxygen Delivery Me thod 04/27/22 11:35 04/27/22 11:40 04/27/22 11:42 Temperature Pulse Rate 83 71 75 Pulse Rate [Pulse Oximeter] Respiratory Rate Blood Pressure 129/86 Blood Pressure [Le ft Upper Arm] Blood Pressure [Ri ght Arm] Pulse Oximetry 96 100 96 Oxygen Delivery Me thod 04/27/22 11:47 04/27/22 11:50 04/27/22 11:57 Temperature Pulse Rate 85 74 86 Pulse Rate [Pulse Oximeter] Respiratory Rate Blood Pressure Blood Pressure [Le ft Upper Arm] Blood Pressure [Ri ght Arm] Pulse Oximetry 93 97 100 Oxygen Delivery Me thod 04/27/22 12:00 04/27/22 12:02 04/27/22 12:07 Temperature Pulse Rate 80 70 81 Pulse Rate [Pulse Oximeter] Respiratory Rate Blood Pressure 144/97 H Blood Pressure [Le ft Upper Arm] Blood Pressure [Ri ght Arm] Pulse Oximetry 88 93 99 Oxygen Delivery Me thod 04/27/22 12:10 04/27/22 12:12 04/27/22 12:17 Temperature Pulse Rate 82 72 77 Pulse Rate [Pulse Oximeter] Respiratory Rate Blood Pressure 137/85 Blood Pressure [Le ft Upper Arm] Blood Pressure [Ri ght Arm] Pulse Oximetry 90 92 96 Oxygen Delivery Me thod 04/27/22 12:20 04/27/22 12:23 04/27/22 12:25 Temperature Pulse Rate 71 69 84 Pulse Rate [Pulse Oximeter] Respiratory Rate Blood Pressure 127/86 Blood Pressure [Le ft Upper Arm] Blood Pressure [Ri ght Arm] Pulse Oximetry 96 97 99 Oxygen Delivery Me thod 04/27/22 12:32 04/27/22 12:42 04/27/22 12:52 Temperature Pulse Rate Pulse Rate [Pulse Oximeter] Respiratory Rate Blood Pressure 125/93 H 140/113 H 134/86 Blood Pressure [Le ft Upper Arm] Blood Pressure [Ri ght Arm] Pulse Oximetry Oxygen Delivery Me thod 04/27/22 13:02 04/27/22 13:08 04/27/22 13:10 Temperature Pulse Rate 83 81 Pulse Rate [Pulse Oximeter] Respiratory Rate Blood Pressure 121/78 Blood Pressure [Le ft Upper Arm] Blood Pressure [Ri ght Arm] Pulse Oximetry 67 L 98 Oxygen Delivery Me thod 04/27/22 13:12 04/27/22 13:15 04/27/22 13:20 Temperature 98.4 F Pulse Rate 73 76 78 Pulse Rate [Pulse Oximeter] Respiratory Rate 16 16 Blood Pressure 102/71 Blood Pressure [Le ft Upper Arm] Blood Pressure [Ri ght Arm] Pulse Oximetry 99 97 98 Oxygen Delivery Me thod 04/27/22 13:21 04/27/22 13:25 04/27/22 13:30 Temperature Pulse Rate 75 90 87 Pulse Rate [Pulse Oximeter] Respiratory Rate Blood Pressure 99/70 Blood Pressure [Le ft Upper Arm] Blood Pressure [Ri ght Arm] Pulse Oximetry 98 97 99 Oxygen Delivery Me thod 04/27/22 13:31 04/27/22 13:35 04/27/22 13:40 Temperature Pulse Rate 80 80 71 Pulse Rate [Pulse Oximeter] Respiratory Rate Blood Pressure 112/75 Blood Pressure [Le ft Upper Arm] Blood Pressure [Ri ght Arm] Pulse Oximetry 99 99 98 Oxygen Delivery Me thod 04/27/22 13:42 04/27/22 13:45 04/27/22 13:50 Temperature Pulse Rate 77 72 87 Pulse Rate [Pulse Oximeter] Respiratory Rate Blood Pressure 100/67 Blood Pressure [Le ft Upper Arm] Blood Pressure [Ri ght Arm] Pulse Oximetry 98 96 97 Oxygen Delivery Me thod 04/27/22 13:51 04/27/22 13:55 04/27/22 14:00 Temperature Pulse Rate 73 70 80 Pulse Rate [Pulse Oximeter] Respiratory Rate Blood Pressure 102/65 Blood Pressure [Le ft Upper Arm] Blood Pressure [Ri ght Arm] Pulse Oximetry 97 97 97 Oxygen Delivery Me thod 04/27/22 14:01 04/27/22 14:02 04/27/22 14:05 Temperature Pulse Rate 87 73 76 Pulse Rate [Pulse Oximeter] Respiratory Rate Blood Pressure 100/66 Blood Pressure [Le ft Upper Arm] Blood Pressure [Ri ght Arm] Pulse Oximetry 96 97 96 Oxygen Delivery Me thod 04/27/22 14:10 04/27/22 14:11 04/27/22 14:15 Temperature Pulse Rate 69 76 87 Pulse Rate [Pulse Oximeter] Respiratory Rate Blood Pressure 109/70 Blood Pressure [Le ft Upper Arm] Blood Pressure [Ri ght Arm] Pulse Oximetry 96 94 95 Oxygen Delivery Me thod 04/27/22 14:25 04/27/22 14:30 04/27/22 14:31 Temperature 98.4 F Pulse Rate 92 88 81 Pulse Rate [Pulse Oximeter] Respiratory Rate Blood Pressure 129/87 Blood Pressure [Le ft Upper Arm] Blood Pressure [Ri ght Arm] Pulse Oximetry 93 96 96 Oxygen Delivery Me thod 04/27/22 14:35 04/27/22 14:40 04/27/22 14:42 Temperature Pulse Rate 84 78 85 Pulse Rate [Pulse Oximeter] Respiratory Rate Blood Pressure 113/85 Blood Pressure [Le ft Upper Arm] Blood Pressure [Ri ght Arm] Pulse Oximetry 98 98 99 Oxygen Delivery Me thod 04/27/22 14:45 04/27/22 15:04 04/27/22 15:05 Temperature Pulse Rate 82 86 83 Pulse Rate [Pulse Oximeter] Respiratory Rate Blood Pressure 123/96 H Blood Pressure [Le ft Upper Arm] Blood Pressure [Ri ght Arm] Pulse Oximetry 94 98 98 Oxygen Delivery Me thod 04/27/22 15:10 04/27/22 15:11 04/27/22 15:14 Temperature Pulse Rate 84 82 84 Pulse Rate [Pulse Oximeter] Respiratory Rate Blood Pressure 114/73 114/74 Blood Pressure [Le ft Upper Arm] Blood Pressure [Ri ght Arm] Pulse Oximetry 97 97 97 Oxygen Delivery Me thod 04/27/22 15:15 04/27/22 15:20 04/27/22 15:21 Temperature Pulse Rate 82 84 88 Pulse Rate [Pulse Oximeter] Respiratory Rate Blood Pressure 130/89 Blood Pressure [Le ft Upper Arm] Blood Pressure [Ri ght Arm] Pulse Oximetry 97 97 95 Oxygen Delivery Me thod 04/27/22 15:22 04/27/22 15:25 04/27/22 15:30 Temperature Pulse Rate 83 79 82 Pulse Rate [Pulse Oximeter] Respiratory Rate Blood Pressure Blood Pressure [Le ft Upper Arm] Blood Pressure [Ri ght Arm] Pulse Oximetry 97 99 98 Oxygen Delivery Me thod 04/27/22 15:32 04/27/22 15:35 04/27/22 15:40 Temperature Pulse Rate 83 76 80 Pulse Rate [Pulse Oximeter] Respiratory Rate Blood Pressure 123/74 Blood Pressure [Le ft Upper Arm] Blood Pressure [Ri ght Arm] Pulse Oximetry 96 99 97 Oxygen Delivery Me thod 04/27/22 15:41 04/27/22 15:45 04/27/22 15:50 Temperature Pulse Rate 80 81 77 Pulse Rate [Pulse Oximeter] Respiratory Rate Blood Pressure 110/84 Blood Pressure [Le ft Upper Arm] Blood Pressure [Ri ght Arm] Pulse Oximetry 95 96 96 Oxygen Delivery Me thod 04/27/22 15:51 04/27/22 15:55 04/27/22 16:24 Temperature 98 F Pulse Rate 77 79 Pulse Rate [Pulse Oximeter] 82 Respiratory Rate 20 Blood Pressure 118/82 Blood Pressure [Le ft Upper Arm] Blood Pressure [Ri ght Arm] 131/92 H Pulse Oximetry 96 99 99 Oxygen Delivery Me thod Room Air Hospitalist - H&P: Result Labs Labs: Short CBC 04/27/22 Range/Units 09:33 WBC 4.03 L (4.50-11.00) K/uL Hgb 12.4 (12.0-16.0) gm/dL Hct 38.2 (33.0-51.0) % Plt Count 188 (140-440) K/uL BMP 04/27/22 10:16 Sodium 140 Potassium 4.0 Chloride 106 Carbon Dioxide 28 BUN 20 Creatinine 0.7 Glucose 96 Calcium 8.7 Assessment and Plan Assessment and plan (1) Speech disturbance: Problem comment: - TIA vs recurrent CVA - recent TCU stay; was actually expected to go home on 04/27 from [facility] - PT, OT, speech re-evaluation - consider MRI 04/28, pending clinical course - continue Eliquis and increase ASA to 325mg daily per Stroke Neurology Status: Acute (2) Cerebrovascular accident: Problem comment: - 04/02, hospitalized [facility] 04/03-04/09 - MRI 04/02: numerous punctate/small acute to subacute infarcts within the supra tentorial/infratentorial brain consistent with small thromboemboli from central source Status: Acute (3) Dermatomyositis: Problem comment: - on Imuran and daily prednisone Status: Acute (4) LV (left ventricular) mural thrombus: Problem comment: - noted on TTE and coronary CTA at [facility] - not present on cardiac MRI performed 04/06 - anticoagulated on Eliquis Status: Acute Plan - per above
--- NOTE | 2022-04-27 19:15 | PC.NURSE ---
End of Shift: Patient arrived to the floor about 1600. Patient is vitally stable, lungs clear, BS WNL, IV SL. Patient 1 assist, walker, gb to commode. Patient is alert but only answered month correctly, patient is very aphasic. Patient is able to respond yes and no well, but anything more is difficult. Patient is slightly weaker on the right side. Patient denies pain. Patient did not eat dinner, as she wanted to sleep. Patient did set off bed alarm once, as she had to use the toilet.
[2022-04-27] MEDS: MULTIVITAMIN/MINERALS 1 TABLET 1 TAB PO (20:22)
[2022-04-27] MEDS: ROSUVASTATIN CALCIUM 10 MG TABLET 20 MG PO (20:22)
[2022-04-27 20:46] LABS: Appearance Urine Clear (Clear); Bilirubin Urine Negative (Negative); Blood Urine Negative (Negative); Color Urine Yellow (Yellow); Glucose Urine Negative (Negative); Ketones Urine Negative (Negative); Leukocyte Esterase Urine Negative (Negative); Nitrite Urine Negative (Negative); Protein Urine Negative (Negative); Specific Gravity Urine 1.015 (1.000-1.030); Urobilinogen Urine 0.2 (0.2-1.0)
[2022-04-28] VITALS (10 sets, daily range): BP systolic 133–151; BP diastolic 79–96; PULSE 72–90; RESP 14–20; TEMP 36.4–36.9; O2SAT 97–100
--- NOTE | 2022-04-28 07:34 | PC.NURSE ---
: A x 1 with gb and walker to [facility], tolerated well. Pt conversing this AM and stated ?can you see how I can finally talk!!?. Occasionally struggling with word finding. VSS. ?
[2022-04-28 07:47] LABS: Basophils Percent Auto 0.5 % (0.0-3.0); Eosinophils Percent Auto 1.5 % (0.0-7.0); Hematocrit 35.9 % (33.0-51.0); Hemoglobin* 11.7 gm/dL (12.0-16.0); Immature Granulocytes Pct Auto 0.2 %; Mean Corpuscular HGB Conc 33 gm/dL (32-36); Mean Corpuscular Hemoglobin 34 pg (26-34); Mean Corpuscular Volume 104 fL (80-100); Monocytes Percent Auto 8.3 % (0.0-11.0); Neutrophils Percent Auto 71.5 % (42.0-72.0); Platelet Count* 164 K/uL (140-440); RDW Coefficient of Variation % 13.6 % (11.5-15.5); Red Blood Count 3.46 m/uL (4.00-5.20); White Blood Count* 4.12 K/uL (4.50-11.00)
[2022-04-28 07:51] LABS: Slide Review Reflex No
[2022-04-28 08:06] LABS: Chloride* 108 mmol/L (96-114); Potassium* 4.2 mmol/L (3.6-5.1); Sodium* 140 mmol/L (135-149)
[2022-04-28 08:09] LABS: Blood Urea Nitrogen* 17 mg/dL (7-30); Carbon Dioxide* 27 mmol/L (20-32); Creatinine* 0.6 mg/dL (0.5-1.5); Estimated Glomerular Filt Rate 88 ml/min
[2022-04-28 08:10] LABS: Calcium* 8.4 mg/dL (8.4-10.6); Glucose* 91 mg/dL (60-115)
[2022-04-28] MEDS: METOPROLOL SUCCINATE (XL) 25 MG TAB PO (09:24)
[2022-04-28] MEDS: MULTIVITAMIN/MINERALS 1 TABLET 1 TAB PO ×2 (09:24→19:42)
[2022-04-28] MEDS: predniSONE 1 MG TABLET 2 MG PO (09:24)
[2022-04-28] MEDS: APIXABAN 5 MG TABLET PO ×2 (09:24→19:41)
[2022-04-28] MEDS: VENLAFAXINE HCL 37.5 MG TABLET PO (09:25)
[2022-04-28] MEDS: azaTHIOprine 50 MG TABLET 100 MG PO (09:26)
[2022-04-28] MEDS: ASPIRIN EC 325 MG TABLET PO (09:55)
--- NOTE | 2022-04-28 12:17 | PC.SOCIAL ---
Discharge planning: Received call from Krystal at [facility] stating pt is a resident of their facility and was there for short term rehab expected to be discharged home this week. Pt is currently on a bed hold and can return to [facility] at discharge. 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
--- NOTE | 2022-04-28 12:19 | PC.SOCIAL ---
Pt. has a manager long term care Krystal @ [facility] @ [phone], fax#[phone] that wants updated when pt. is ready for discharge.
--- NOTE | 2022-04-28 15:21 | REH.OT ---
OT: Tramaine informed pt's daughter with questions for therapies about recommendations. This OT met with pt after reviewing chart and therapy recommendations from earlier today and provided daughter and pt with recommendations from therapy for returning to SNF for rehab stay. Initially, pt's daughter was talking about bringing her directly home and staying with her 4-6 weeks. Their questions were addressed within realm of practice and daughter reports they will talk about it further and she would like to be a part of therapy sessions moving forward with pt so she can bring patient home from [facility] as soon as able and assist patient with carryover of therapy interventions and exercises, especially speech.
--- NOTE | 2022-04-28 16:34 | P.IMPN_ITS ---
Progress Note: A&P Assessment and plan (1) Speech disturbance: Problem details: - TIA vs recurrent CVA: Fluctuating expressive aphasia - recent TCU stay; was actually expected to go home on 04/27 from [facility] - PT, OT, speech re-evaluation - consider MRI 04/28, pending clinical course - continue Eliquis and increase ASA to 325mg daily per Stroke Neurology Status: Acute Assessment and Plan: Stable today. (2) Cerebrovascular accident: Problem details: - 04/02, hospitalized [facility] 04/03-04/09 - MRI 04/02: numerous punctate/small acute to subacute infarcts within the supra tentorial/infratentorial brain consistent with small thromboemboli from central source Status: Acute (3) Dermatomyositis: Problem details: - on Imuran and daily prednisone Status: Acute (4) LV (left ventricular) mural thrombus: Problem details: - noted on TTE and coronary CTA at [facility] - not present on cardiac MRI performed 04/06 - anticoagulated on Eliquis Status: Acute Plan 1. Reviewed with patient and her daughter. 2. Continue to monitor closely on altered regimen. 3. If she continues to do well consider transferring back to [address] [place] [address] tomorrow for ongoing rehabilitation efforts with hopes of getting back to her own home soon. 4. Patient reluctantly agreeable. She prefers to go directly home. She understands that it is difficult given her fluctuating status. Time Spent With Patient Total time spent: 40 minutes Subjective Time Seen by Provider: 12:30 Date Seen: 04/28/22 Interval history: Hospital day 2. 87-year-old woman with recent history of embolic strokes. Presents with fluctuating expressive aphasia and right-sided weakness. Weakness in great measure resolved. In great measure her condition is slowly improved. Still has the intermittent fluctuating expressive aphasia. Exam Narrative: Exam Narrative: Appears comfortable and in no acute distress. Difficulty with word-finding. Some frustration with this effort. Allowing her time, for the most part she is able to eventually expressed her thought or concern. Lungs are clear to auscultation. Heart tones with regular rhythm. Abdomen with active bowel sounds, soft, nontender. Independent with transfer, station, and gait although does much better with standby assist and use of gait belt. Const: Vital Signs, click to edit/add: Vital Signs - 24 hr 04/27/22 18:22 04/27/22 19:00 04/27/22 22:47 Temperature 97.7 F Pulse Rate 80 Pulse Rate [Pulse Oximeter] 70 70 Respiratory Rate 20 20 Blood Pressure [Le ft Arm] Blood Pressure [Ri ght Arm] 148/89 H Pulse Oximetry 99 Oxygen Delivery Me thod Room Air 04/27/22 22:47 04/27/22 23:00 04/27/22 23:00 Temperature 97.6 F Pulse Rate 77 Pulse Rate [Pulse Oximeter] 83 Respiratory Rate 20 20 Blood Pressure [Le ft Arm] Blood Pressure [Ri ght Arm] 143/71 H Pulse Oximetry 99 99 Oxygen Delivery Me thod Room Air Room Air 04/28/22 03:00 04/28/22 08:10 04/28/22 08:20 Temperature 97.6 F Pulse Rate 72 Pulse Rate [Pulse Oximeter] 90 90 Respiratory Rate 20 20 Blood Pressure [Le ft Arm] 133/79 Blood Pressure [Ri ght Arm] Pulse Oximetry 99 Oxygen Delivery Me thod Room Air 04/28/22 08:20 04/28/22 08:20 04/28/22 11:50 Temperature 97.9 F 98.2 F Pulse Rate Pulse Rate [Pulse Oximeter] 82 90 Respiratory Rate 14 14 14 Blood Pressure [Le ft Arm] 148/96 H 135/86 Blood Pressure [Ri ght Arm] Pulse Oximetry 100 100 98 Oxygen Delivery Me thod Room Air Room Air Room Air 04/28/22 15:00 04/28/22 15:58 Temperature Pulse Rate 72 Pulse Rate [Pulse Oximeter] Respiratory Rate 16 Blood Pressure [Le ft Arm] Blood Pressure [Ri ght Arm] Pulse Oximetry 97 Oxygen Delivery Me thod Room Air Documenting provider has reviewed patient's vital signs: yes Labs Labs: Laboratory Results - last 24 hr 04/27/22 04/28/22 04/28/22 20:38 06:56 06:56 WBC 4.12 L RBC 3.46 L Hgb 11.7 L Hct 35.9 MCV 104 H MCH 34 MCHC 33 RDW Coeff of Pamela 13.6 Plt Count 164 Neut % (Auto) 71.5 Lymph % (Auto) 18.[address] [place] % (Auto) 8.3 Eos % (Auto) 1.5 Baso % (Auto) 0.5 Neut # (Auto) 2.90 Lymph # (Auto) 0.[address] [place] # (Auto) 0.30 Eos # (Auto) 0.10 Baso # (Auto) 0.00 Sodium 140 Potassium 4.2 Chloride 108 Carbon Dioxide 27 BUN 17 Creatinine 0.6 Estimated Creat Clear 38.50 Estimated GFR 88 Glucose 91 Calcium 8.4 Urine Color Yellow Urine Appearance Clear Urine pH 7.0 Ur Specific [place] 1.015 Urine Protein Negative Urine Glucose (UA) Negative Urine Ketones Negative Urine Blood Negative Urine Nitrite Negative Urine Bilirubin Negative Urine Urobilinogen 0.2 Ur Leukocyte Esterase Negative
--- NOTE | 2022-04-28 18:19 | PC.NURSE ---
PATIENT PLEASANT AND COOPERATIVE. EXTREMITIES MILDLY WEAK BUT EQUAL. PATIENT DENIES PAIN OR N/V. ABLE TO TAKE 1 PILL AT A TIME, OTHERWISE NO DIFFICULTIES WITH SWALLOWING AT THIS TIME. PATIENT'S SPEECH DELAYED AT TIMES WITH OCCASIONAL DIFFICULTIES FINDING WORDS. UP WITH A1, WALKER AND GAIT BELT. TOLERATING ACTIVITY WELL; PATIENT HISTORICALLY WEARS ORTHOTICS IN HER SHOES D/T PREVIOUS BACK AND LEFT ANKLE HISTORY. DAUGHTER REPORTS PATIENT'S GAIT LOOKS LIKE HER BASELINE WHEN WALKING IN HALLWAY.
[2022-04-28] MEDS: ROSUVASTATIN CALCIUM 10 MG TABLET 20 MG PO (19:42)
[2022-04-29] VITALS: BP 141/78; PULSE 83; RESP 18; TEMP 36.6; O2SAT 99
--- NOTE | 2022-04-29 06:46 | PC.NURSE ---
End of shift status [id number] Pt alert. Pleasant and cooperative. Speech is delayed but understandable. Denies pain. VSS on room air. Telemetry monitoring, normal sinus rhythm with PVCs. Up with assist of 1 and walker to bathroom. Pt observed resting well between cares.
[2022-04-29 07:00] VITALS: RESP 18; O2SAT 90
[2022-04-29 07:30] VITALS: PULSE 88
[2022-04-29 08:00] VITALS: BP 143/97; PULSE 92; RESP 16; TEMP 36.4; O2SAT 90
[2022-04-29] MEDS: predniSONE 1 MG TABLET 2 MG PO (08:55)
[2022-04-29] MEDS: APIXABAN 5 MG TABLET PO (08:55)
[2022-04-29] MEDS: MULTIVITAMIN/MINERALS 1 TABLET 1 TAB PO (08:56)
[2022-04-29] MEDS: ASPIRIN EC 325 MG TABLET PO (08:56)
[2022-04-29] MEDS: METOPROLOL SUCCINATE (XL) 25 MG TAB PO (08:56)
[2022-04-29] MEDS: VENLAFAXINE HCL 37.5 MG TABLET PO (08:59)
[2022-04-29 09:16] VITALS: BP 118/82; PULSE 88; RESP 18; TEMP 36.6
[2022-04-29] MEDS: azaTHIOprine 50 MG TABLET 100 MG PO (09:27)
--- NOTE | 2022-04-29 10:20 | PC.NURSE ---
Prescriptions called to [facility] in [place] Apixaban 5mg po bid, #60 one refill rosuvastatin 20mg po qhs, #30 one refill
--- NOTE | 2022-04-29 11:48 | PC.SOCIAL ---
Discharge planning: Met with pt and dtr in room regarding d/c plan. They are requesting social media specialist contact [facility] who was providing services at home prior to admit to [facility] for RN, PT, OT and speech follow up. Called [facility] in [place] and faxed requested information. They are starting RN services this week and will add PT/OT/ speech when available in a few weeks.
--- NOTE | 2022-04-29 12:00 | PC.NURSE ---
Pt alert and oriented x3, pleasant and cooperative. Pt up with SBA. Education given to patient and family members. Verbalized understanding. IV taken out before discharge.
--- NOTE | 2022-04-29 19:20 | PM.DS1 ---
DS: Providers Provider Time Seen by Provider: 09:00 Date Seen: 04/29/22 Date of admission: 04/27/22 15:46 Primary care physician: Francisco Juárez MD Admitting Clinician: Kajal Rosario MD Consults: 04/27/22 18:22 Consult to Physical Therapy [CONS] Routine Comment: Reason(s) for PT Consult:: Evaluate and Treat Any Restrictions?:: Wt Bearing as Tolerated Consult to Speech Therapy [CONS] Routine Comment: Reason(s) for Speech Consult:: Speech/Swallowing Eval Comment: aphasia, recent CVA 04/27/22 18:24 Consult to Occupational Therapy [CONS] Routine Comment: Reason(s) for OT Consult:: Evaluate and Treat Any Restrictions?:: Wt Bearing as Tolerated Attending Physician on discharge: Aden Marroquin MD Date of Discharge: 04/29/22 DS: Diagnosis Discharge Diagnosis (1) Speech disturbance: Status: Acute Problem details: - TIA vs recurrent CVA: Fluctuating expressive aphasia - recent TCU stay; was actually expected to go home on 04/27 from [facility] - PT, OT, speech re-evaluation - consider MRI 04/28, pending clinical course - continue Eliquis and increase ASA to 325mg daily per Stroke Neurology (2) Cerebrovascular accident: Status: Acute Problem details: - 04/02, hospitalized ANW 04/03-04/09 - MRI 04/02: numerous punctate/small acute to subacute infarcts within the supra tentorial/infratentorial brain consistent with small thromboemboli from central source (3) LV (left ventricular) mural thrombus: Status: Acute Problem details: - noted on TTE and coronary CTA at 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 Daughter Julia present for H&P. Last known well was 8am this morning.? Patient performed her morning ADLs and at approximately 8:30 a.m. she was found to have acute aphasia and right upper extremity weakness. Symptoms noted by Julia, who was actually picking Namita up to take her home from [facility] (was there for a TCU stay, following an admission at [facility] from 04/03-04/09 for an acute/subacute cardioembolic stroke.? Symptoms at that time included right leg weakness and dysarthria).? ER course and findings: ?- no acute findings on head CT, reassuring head and neck CTA. Not a candidate for thrombolysis given Eliquis therapy ?- Dr. Garcia in the ED discussed the case with Dr. Ibarra of Stroke Neurology who recommended continuing patient's Eliquis and increasing her ASA from 81-325 mg daily.? Urgent repeat MRI not indicated per Neuro ?- patient's aphasia improved; then returned.? Patient then had a 2nd head CT without contrast that did not exhibit acute changes Upon arrival to the floor, patient denies chest pain, dyspnea, or headache. She continues to have word-finding difficulties, but is mentating appropriately. Patient's MRI from recent [facility] stay exhibited numerous punctate/small acute to subacute infarcts within the supratentorial/infratentorial brain, consistent with small thromboemboli.? Namita was followed by Neurology and Cardiology.? She had a CTCA performed that exhibited a highly mobile mass in the LV chamber with resultant thrombus, also noted on echocardiogram.? She then had a cardiac MRI on 04/06 that did not exhibit an LV thrombus.? During stay, patient was initially treated via heparin drip, transitioned to po Eliquis upon discharge, in addition to 81 mg aspirin per day and rosuvastatin. We did speak to Dr. Ibarra from Neurology at [facility], he suggested a full aspirin 325 mg, continue with the Eliquis, not an MRI at the present time, after we discussed she had a CTA of her head neck also. Condition seemed to stabilize while in the hospital. Seemingly had fluctuating episodes of expressive aphasia. In conferring with the patient her daughter decision was made to have the patient return to her home at time of discharge with outpatient physical therapy, occupational therapy, speech therapy. Additionally she will follow up with her primary care physician. Status at Discharge Functional status at discharge: uses cane/walker Overall status at discharge: patient is progressing back to baseline Time Spent with Patient Time attestation: Total time spent providing and/or coordinating discharge services: Time spent: Greater than 30 minutes Exam Narrative: Exam Narrative: Appears comfortable and in no acute distress.? Difficulty with word-finding.? Some frustration with this effort.? Allowing her time, for the most part she is able to eventually expressed her thought or concern. Lungs are clear to auscultation.? Heart tones with regular rhythm.? Abdomen with active bowel sounds, soft, nontender.? Independent with transfer, station, and gait although does much better with standby assist and use of gait belt. Const: Vital Signs, click to edit/add: Vital Signs - 24 hr 04/28/22 19:52 04/29/22 00:00 04/28/22 23:45 Temperature 98.4 F 97.9 F Pulse Rate Pulse Rate [Pulse Oximeter] 80 83 83 Respiratory Rate 16 18 18 Blood Pressure Blood Pressure [Le ft Arm] 141/78 H Blood Pressure [Ri ght Arm] 143/89 H Pulse Oximetry 99 99 Oxygen Delivery Me thod Room Air Room Air 04/28/22 23:45 04/28/22 23:18 04/29/22 07:30 Temperature Pulse Rate 73 88 Pulse Rate [Pulse Oximeter] Respiratory Rate 18 Blood Pressure Blood Pressure [Le ft Arm] Blood Pressure [Ri ght Arm] Pulse Oximetry 99 Oxygen Delivery Me thod Room Air 04/29/22 09:16 04/29/22 08:00 04/29/22 07:00 Temperature 97.9 F 97.5 F L Pulse Rate 88 Pulse Rate [Pulse Oximeter] 92 Respiratory Rate 18 16 18 Blood Pressure 118/82 Blood Pressure [Le ft Arm] Blood Pressure [Ri ght Arm] 143/97 H Pulse Oximetry 90 Oxygen Delivery Me thod Room Air 04/29/22 07:00 Temperature Pulse Rate Pulse Rate [Pulse Oximeter] Respiratory Rate 18 Blood Pressure Blood Pressure [Le ft Arm] Blood Pressure [Ri ght Arm] Pulse Oximetry 90 Oxygen Delivery Me thod Room Air Documenting provider has reviewed patient's vital signs: yes DS: Data Imaging CT angiogram of head and neck: Radiologist's impression: To studies were obtained in the short period of time the patient was emergency department due to vacillating nature of her symptoms. Neither 1 demonstrated acute infarction, major bleed, or other acute abnormality. Discharge Plan Discharge Disposition: Home, Self-Care Date of Admission: 04/27/22 15:46 Attending Provider on Discharge: Aden Marroquin Primary Care Provider: Francisco Juárez Condition: Improved Anticipated Discharge Date/Time: 04/29/22 10:30 Discharge Medications: New aspirin 325 mg Tablet,Delayed Release (Dr/Ec) 325 mg PO DAILY Qty: 30 0RF Continued azathioprine 50 mg tablet 100 mg PO DAILY cholecalciferol (vitamin D3) 50 mcg (2,000 unit) capsule 50 mcg PO DAILY omega [id number]-fish oil [Fish Oil] 1,000 mg (120 mg-180 mg) capsule 1 cap PO DAILY metoprolol succinate 25 mg tablet extended release 24 hr 25 mg PO DAILY prednisone 1 mg tablet 2 mg PO DAILY venlafaxine 37.5 mg tablet 37.5 mg PO DAILY PreserVision AREDS [id number] capsule 1 cap PO BID rosuvastatin [Crestor] 20 mg tablet 20 mg PO HS 30 Days Qty: 30 1RF Eliquis 5 mg tablet 5 mg PO BID 30 Days Qty: 60 1RF Discontinued aspirin [[facility] S[place] Aspirin] 81 mg tablet,chewable 81 mg PO DAILY Discharge Orders: Discharge Order (Routine); Ordered 04/29/22 Ordered By: Aden Marroquin Patient Education: Aspirin (By mouth), Apixaban (By mouth) (Eliquis), Stroke (GEN) Additional Instructions: 1. Homecare referral; 2. Physical therapy evaluate and treat; 3. Occupational therapy evaluate and treat; 4. Speech therapy evaluate and treat; 5. See primary care physician in 1-2 weeks; 6. Return to clinic or hospital sooner as needed; 7. Anticoagulation bracelet or necklace - may order on-line or with your pharmacist. Activity Level: Activity as Tolerated and Use Walker Discharge Diet: Heart Healthy (2 gm sodium, low fat) Follow Up Appointments: Francisco Juárez MD [Primary Care Provider] - (See provider as needed) Micha Rock MD [Referring] - 05/07/22 9:40 am Forms: [employer] Info Instructions
== END 2022-04-29 10:15 | disposition home or self-care (01) ==
LOC: ED 12:15 → MEDSURG 15:48
PROVIDERS: Admitting Provider Family Medicine; Emergency Provider Family Medicine; PCP Family Medicine; Visit Provider Family Medicine
DX: I63.9 Cerebral infarction, unspecified (principal); I51.3 Intracardiac thrombosis, not elsewhere classified; R47.9 Unspecified speech disturbances; M33.90 Dermatopolymyositis, unspecified, organ involvement unspecified; F41.9 Anxiety disorder, unspecified; F19.20 Other psychoactive substance dependence, uncomplicated; Z79.01 Long term (current) use of anticoagulants; R53.1 Weakness; R47.01 Aphasia; Z66 Do not resuscitate; H49.22 Sixth [abducent] nerve palsy, left eye; I35.0 Nonrheumatic aortic (valve) stenosis; M19.042 Primary osteoarthritis, left hand; M19.041 Primary osteoarthritis, right hand; I77.89 Other specified disorders of arteries and arterioles; M40.204 Unspecified kyphosis, thoracic region; R01.1 Cardiac murmur, unspecified; I49.8 Other specified cardiac arrhythmias; I10 Essential (primary) hypertension; E78.5 Hyperlipidemia, unspecified; Z86.73 Personal history of transient ischemic attack (TIA), and cerebral infarction without residual deficits
CPT/HCPCS: 36415; 70450; 70496; 70498; 80048; 81003; 82565; 83880; 85025; 85379; 85610; 85730; 87502; 87634; 87635; 92523; 93005; 96360; 96361; 97116; 97161; 97165; 97535; 99285; 99291; G0378; A9153; A9270; G0379; J7030; J7500; J7512; Q9967